=== PATIENT | male | born 1960 | race African-American/Black ===

== ENCOUNTER 2024-09-23 11:29 | Emergency (ER) | payer OTHER ==
[~2024-09-23] VITALS: Ht 182.9 cm; Wt 80.0 kg
[2024-09-23 11:31] VITALS: BP 172/115; PULSE 90; RESP 16; TEMP 37.1; O2SAT 99
[2024-09-23] MEDS ORDERED: METO-396 PO (11:34)
[2024-09-23] MEDS ORDERED: KETOROLAC 15MG/ML VIAL IV ONE (13:15)
[2024-09-23] MEDS ORDERED: IPRATROPIUM/ALBUTEROL 0.5-3(2.5)MG/3ML NEB HHN ONE (13:15)
[2024-09-23] MEDS ORDERED: ONDANSETRON HCL 4MG/2ML INJ IV ONE (13:15)
[2024-09-23] MEDS ORDERED: DEXAMETHASONE 4MG/ML 1ML VIAL IV ONE (13:15)
[2024-09-23] MEDS ORDERED: SODIUM CHLORIDE 0.9% 1,000 ML IV ONE (13:15)
== END 2024-09-23 15:30 | disposition left against medical advice (07) ==
LOC: ER 11:47
DX: T40.1X1A Poisoning by heroin, accidental (unintentional), initial encounter (principal); I10 Essential (primary) hypertension; Y92.89 Other specified places as the place of occurrence of the external cause
CPT/HCPCS: 71045; 99283; Z7610; J7030